=== PATIENT | male | born 1980 | race African-American/Black ===

== ENCOUNTER 2024-07-29 14:38 | Emergency (ER) | payer SELFPAY ==
[2024-07-29] MEDS: predniSONE 20 MG Tab PO ONE (15:59)
== END 2024-07-29 16:03 | disposition home or self-care (01) ==
LOC: MW.ED 14:38
DX: L40.9 Psoriasis, unspecified (principal); Z75.8 Other problems related to medical facilities and other health care
CPT/HCPCS: 99282; A9270; 99283